=== PATIENT | male | born 1970 | race Caucasian/White ===

== ENCOUNTER 2018-09-04 21:51 | Emergency (ER) | payer SELFPAY ==
[~2018-09-04] VITALS: Ht 154.9 cm; Wt 68.0 kg
[2018-09-04 22:13] VITALS: BP 146/86
--- NOTE | 2018-09-04 22:14 | NUR ---
pt triaged, given urine cup and sent to er lobby
--- NOTE | 2018-09-04 22:50 | NUR ---
PT AMBULATED TO BED 9.
--- NOTE | 2018-09-04 22:56 | NUR ---
PT MABULATED TO BED 9 WITH VSS. Addendum: 09/05/18 at 0000 by [facility] PT AMBULATED TO BED 9 WITH VSS.
--- NOTE | 2018-09-04 23:15 | NUR ---
PT PRESENTS TO THE ED WITH CO 10/10 SEVERE SUPRAPUBIC PAIN X 3.5 HOURS. PT ALSO REPORTS THAT HE "CANNOT GO TO THE BATHROOM". -- SUPRAPUBIC REGION APPEARS DISTENDED AND IS TENDER TO TOUCH. -- PT DENIES NVD. -- PMH: DENIES
--- NOTE | 2018-09-04 23:57 | NUR ---
# 14 FR Trinh catheter with 10 ml utilizing sterile technique. Immediate return of 100 ml urine noted. Bedside drainage bag placed below level of bladder. Urine sample collected and sent to lab. Pt tolerated procedure well.
--- NOTE | 2018-09-05 00:14 | NUR ---
Patient discharged with v/s stable. Written and verbal after care instructions given and explained. Patient alert, oriented and verbalized understanding of instructions. Ambulatory with steady gait. All questions addressed prior to discharge. ID band removed. Patient advised to follow up with PMD. Rx of Flomax and Motrin given. Patient educated on indication of medication including possible reaction and side effects. Opportunity to ask questions provided and answered. Addendum: 09/05/18 at 0122 by [facility] PT ALSO SENT HOME WITH HONG CATH CONNECTED TO LEG BAG. HONG CARE EDUCATION AND INSTRUCTIONS PROVIDED.
[2018-09-05 01:12] VITALS: BP 118/73
== END 2018-09-05 01:14 | disposition home or self-care (01) ==
LOC: MED 21:51
DX: R33.9 Retention of urine, unspecified (principal); N40.1 Benign prostatic hyperplasia with lower urinary tract symptoms
CPT/HCPCS: 51702; 99284; C1758

== ENCOUNTER 2022-06-02 22:09 | Emergency (ER) | payer MEDICAID ==
[~2022-06-02] VITALS: Ht 160 cm; Wt 65.8 kg
[2022-06-02 22:15] VITALS: BP 136/90
--- NOTE | 2022-06-02 22:15 | NUR ---
TO BED AMBULATORY
[2022-06-02 23:36] LABS: APPEARANCE,URINE CLEAR (CLEAR); BILIRUBIN,URINE NEGATIVE (NEGATIVE); BLOOD, URINE 2+ (NEGATIVE); COLOR,URINE YELLOW (YELLOW); LEUKOCYTE ESTERASE ,URINE NEGATIVE (NEGATIVE); NITRITE, URINE NEGATIVE (NEGATIVE); UGLUCOSE NEGATIVE (NEGATIVE)
[2022-06-02 23:48] LABS: RBC,URINE 11-20 (MOD) /HPF (0-5); WBC,URINE 0-5 /HPF (0-5)
[2022-06-03] MEDS ORDERED: TAMS0.4C96 PO (00:49)
[2022-06-03 01:40] VITALS: BP 136/90
--- NOTE | 2022-06-03 01:40 | NUR ---
Patient discharged with v/s stable. Written and verbal after care instructions given and explained. Patient alert, oriented and verbalized understanding of instructions. Ambulatory with steady gait. All questions addressed prior to discharge. ID band removed. Patient advised to follow up with PMD. Rx of TAMSULOSIN given. Patient educated on indication of medication including possible reaction and side effects. Opportunity to ask questions provided and answered. DX: ACUTE URINARY RETENTION, MALE
== END 2022-06-03 01:40 | disposition home or self-care (01) ==
LOC: MED 22:09
DX: R33.9 Retention of urine, unspecified (principal)
CPT/HCPCS: 81001; 87086; 99283

== ENCOUNTER 2022-06-07 11:46 | Emergency (ER) | payer MEDICAID ==
[~2022-06-07] VITALS: Ht 154.9 cm; Wt 72.7 kg
[~2022-06-07 11:46] MED LIST: TAMS0.4C96 PO
[2022-06-07 12:00] VITALS: BP 137/95
--- NOTE | 2022-06-07 12:05 | NUR ---
PT TO [facility]
--- NOTE | 2022-06-07 13:50 | NUR ---
PT AMBULATED TO BATHROOM WITH STEADY GAIT
--- NOTE | 2022-06-07 13:51 | NUR ---
BLADDER SCAN NOTED 111ML OF URINE, ERMD MADE AWARE
--- NOTE | 2022-06-07 13:58 | NUR ---
BLADDER SCAN NOTED 80ML
--- NOTE | 2022-06-07 14:00 | NUR ---
52 Y/O MALE BIB SELF PRESENTS TO ED FOR REMOVAL OF HONG CATHETER, HONG WAS PLACED IN ED ON 06/02/22 FOR ACUTE URINARY RETENTION, DENIES ANY ABD PAIN, PELVIC PAIN, BLOOD IN STOOL. PT WAS SEEN BY UROLOGIST STEVIE PMH: DENIES
--- NOTE | 2022-06-07 14:06 | NUR ---
Patient discharged with v/s stable. Written and verbal after care instructions ABOUT URINARY RETENTION given and explained. Patient verbalized understanding. Ambulatory with steady gait. All questions addressed prior to discharge. Advised to follow up with PMD.
== END 2022-06-07 14:06 | disposition home or self-care (01) ==
LOC: MED 11:46
DX: R33.9 Retention of urine, unspecified (principal); Z79.899 Other long term (current) drug therapy
CPT/HCPCS: 99284

== ENCOUNTER 2024-01-14 15:09 | Emergency (ER) | payer SELFPAY ==
[~2024-01-14] VITALS: Ht 160 cm; Wt 68.9 kg
[2024-01-14 15:34] VITALS: BP 140/87; PULSE 79; RESP 18; TEMP 98.1; O2SAT 97
[2024-01-14 15:50] VITALS: O2SAT 99
== END 2024-01-14 16:44 | disposition home or self-care (01) ==
LOC: MED 15:09
DX: R33.9 Retention of urine, unspecified (principal); N40.0 Benign prostatic hyperplasia without lower urinary tract symptoms; Z79.899 Other long term (current) drug therapy
CPT/HCPCS: 51702; 99284

== ENCOUNTER 2024-01-22 16:08 | Emergency (ER) | payer SELFPAY ==
[~2024-01-22] VITALS: Ht 160 cm; Wt 69.2 kg
[2024-01-22 16:22] VITALS: BP 151/97; PULSE 82; RESP 17; TEMP 98.3; O2SAT 98
[2024-01-22 19:36] LABS: APPEARANCE,URINE CLOUDY (CLEAR); BILIRUBIN,URINE NEGATIVE (NEGATIVE); BLOOD, URINE 3+ (NEGATIVE); LEUKOCYTE ESTERASE ,URINE 2+ (NEGATIVE); NITRITE, URINE POSITIVE (NEGATIVE); PROTEIN,URINE 2+ (NEGATIVE); UGLUCOSE NEGATIVE (NEGATIVE)
[2024-01-22 19:37] LABS: COLOR,URINE AMBER (YELLOW)
[2024-01-22 19:44] LABS: RBC,URINE 11-20 (MOD) /HPF (0-5)
[2024-01-22 19:45] LABS: BACTERIA,URINE 10-30 (MOD) /HPF (None Seen); SQUAMOUS EPITHELIAL CELL,UR 0-3 (FEW) /LPF (0-3 (FEW)); WBC,URINE 16-25 (MOD) /HPF (0-5)
[2024-01-22] MEDS ORDERED: CIPR500T4 PO (20:07)
[2024-01-22 20:24] VITALS: BP 127/87; PULSE 65; RESP 20; TEMP 98; O2SAT 99
== END 2024-01-22 20:24 | disposition home or self-care (01) ==
LOC: MED 16:08
DX: N39.0 Urinary tract infection, site not specified (principal); R03.0 Elevated blood-pressure reading, without diagnosis of hypertension; Z46.6 Encounter for fitting and adjustment of urinary device; Z79.2 Long term (current) use of antibiotics
CPT/HCPCS: 81001; 87086; 99283